=== PATIENT | male | born 1970 | race Caucasian/White ===

== ENCOUNTER 2016-09-12 17:48 | Emergency (ER) | payer OTHER ==
--- NOTE | 2016-09-12 18:40 | EDDOCDS ---
Nurse's Notes [facility] Name: Skyler Baker Age: 45 yrs Sex: Male : 1970 Arrival Date: 09/12/2016 Time: 17:48 Bed TR7 Private MD: Roya Dean [facility] Diagnosis: Strain of muscle, fascia and tendon of the posterior muscle group at thigh level, left thigh Presentation: 09/12 17:55 Presenting complaint: Patient states: slipped and fell. Presents to ER due to left leg ld5 pain. Adult Sepsis Screening: The patient does not have new or worsening altered mentation. Patient's respiratory rate is less than 22. Systolic blood pressure is greater than 100. Patient has a qSOFA score of 0- Negative Sepsis Screen. Suicide/Homicide risk assessment- the patient denies having any suicidal and/or homicidal ideations and does not present with any other emotional, behavioral or mental health complaints. 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 Transition of care: patient was not received from another setting of care. 17:55 Acuity: SHELLEY Level 4 ld5 17:55 Method Of Arrival: Walkin/Carried/Asstd ld5 Triage Assessment: 17:56 General: Appears in no apparent distress. Pain: Location: left leg Pain currently is 10 ld5 out of 10 on a pain scale. Aggravated by repositioning, weight bearing. HIV screening NA for this visit Offered previously. Neurological: Level of Consciousness is awake, alert. Musculoskeletal: Reports "it feels like it's swelling". Historical: - Allergies: no known allergies; - Home Meds: 1. Effexor XR 150 mg Oral cp24 1 cap once daily 2. Fish Oil Oral 1 tab daily 3. Vitamin D Oral 1000 unit daily - PMHx: Anxiety; - PSHx: right knee surgery; Neck fusion; - Social history: Smoking status: Patient states was never smoker of tobacco. No barriers to communication noted, The patient speaks fluent Jamaican, Speaks appropriately for age. - Family history: Not pertinent. - : The pt / caregiver states he / she is not on anticoagulants. Home medication list is obtained from the patient. - Exposure Risk Screening:: None identified. Screenin:37 Screening information is obtained from the patient. Fall risk: No risks identified. ld5 Assistance ADL's: requires no assistance with activities of daily living. Abuse/DV Screen: The patient / caregiver reports he/she is: not in a situation that causes fear, pain or injury. Nutritional screening: No deficits noted. Advance Directives: Currently, there is no health care proxy. home support is adequate. Assessment: 18:37 General: Appears in no apparent distress, Behavior is appropriate for age. Pain: ld5 Location: left leg. Neurological: Level of Consciousness is awake, alert. Respiratory: Airway is patent Respiratory effort is even, unlabored. Vital Signs: 17:50 BP 134 / 80; Pulse 78; Resp 16; Temp 97.7(T); Pulse Ox 100% on R/A; Weight 90.72 kg; sew Height 5 ft. 9 in. (175.26 cm); Pain 10/10; 17:50 Body Mass Index 29.53 (90.72 kg, 175.26 cm) [facility] [place] [place] Vitals: 17:50 Log In Time: September 12, 2016 at 17:45. [facility] [place] ED Course: 17:49 Patient visited by Lo Cruz. sew 17:49 Other - Complete Info On Cds is Private Physician. sew 17:49 [facility] is Private Physician. sew 17:49 Patient moved to Waiting sew 17:51 Patient visited by Lo Cruz. sew 17:51 Patient moved to Pre RCE sew 17:55 Triage Initiated ld5 17:57 Patient visited by Meredith Reyes RN. ld5 18:11 [facility] Flowers [facility]C [facility] ar2 18:11 Chiki Montalvo MD is Attending Physician. ar2 18:11 Patient visited by Titus Flowers PA-C. ar2 18:11 Patient moved to Triage 3 ld5 18:21 [facility] hospital is Referral Physician. ar2 18:35 Patient visited by Carissa Guerrero PCA. jb5 18:37 Patient moved to TR7 ld5 18:37 The patient / caregiver is instructed regarding the plan of care and ED course. ld5 18:37 No IV's were initiated during this patient's visit. No procedures done that require ld5 assistance. 18:39 German wrap to left leg. ld5 Order Results: There are currently no results for this order. Outcome: 18:22 Discharge ordered by Provider. ar2 18:37 Discharge Assessment: Patient awake, alert and oriented x 3. No cognitive and/or ld5 functional deficits noted. Patient verbalized understanding of disposition instructions. patient administered narcotics - no. The following High Risk Discharge criteria are identified: None. Discharged to home ambulatory. Condition: stable. Discharge instructions given to patient, Instructed on discharge instructions, follow up and referral plans. medication usage, Demonstrated understanding of instructions, medications, Pt was receptive of discharge instructions/ teaching. Prescriptions given X 1. No special radiology studies were completed. Property :Personal belongings accompany Pt. 18:39 Patient left the ED. ld5 Signatures: Carissa Guerrero, QUALITY INTERNSHIP QUALITY INTERNSHIP jb5 Titus Flowers PA-C PA-C ar2 Meredith ReyesRN RN ld5 Lo Cruz MTDD
--- NOTE | 2016-09-12 18:40 | EDDOCDS ---
Physician Documentation [facility] Name: Skyler Baker Age: 45 yrs Sex: Male : 1970 Arrival Date: 09/12/2016 Time: 17:48 Bed TR7 Private MD: Roya Dean [facility] Disposition: 09/12/16 18:22 Discharged to Home/Self Care. Impression: Strain of muscle, fascia and tendon of the posterior muscle group at thigh level, left thigh. - Condition is Stable. - Discharge Instructions: Elastic Bandage and RICE, Hamstring Strain. - Prescriptions for Naprosyn 500 mg Oral Tablet - take 1 tablet by ORAL route 2 times per day take with food; 30 tablet. - Medication Reconciliation, Local Pharmacy Hours form. - Follow up: Roya Dean [facility]; When: Tomorrow; Reason: Recheck today's complaints. - Problem is new. - Symptoms are unchanged. Historical: - Allergies: no known allergies; - Home Meds: 1. Effexor XR 150 mg Oral cp24 1 cap once daily 2. Fish Oil Oral 1 tab daily 3. Vitamin D Oral 1000 unit daily - PMHx: Anxiety; - PSHx: right knee surgery; Neck fusion; - Social history: Smoking status: Patient states was never smoker of tobacco. No barriers to communication noted, The patient speaks fluent Polish, Speaks appropriately for age. - Family history: Not pertinent. - : The pt / caregiver states he / she is not on anticoagulants. Home medication list is obtained from the patient. - Exposure Risk Screening:: None identified. Vital Signs: 09/12 17:50 BP 134 / 80; Pulse 78; Resp 16; Temp 97.7(T); Pulse Ox 100% on R/A; Weight 90.72 kg / sew 200 lbs; Height 5 ft. 9 in. (175.26 cm); Pain 10/10; 17:50 Body Mass Index 29.53 (90.72 kg, 175.26 cm) sew MDM: 18:21 German Wrap ordered. ar2 Signatures: Titus Flowers PA-C PAJoseC ar2 Meredith Reyes,RN RN ld5 MTDD
--- NOTE | 2016-09-16 09:41 | EDDOCDS ---
Physician Documentation [facility] Name: Skyler Baker Age: 45 yrs Sex: Male : 1970 Arrival Date: 09/12/2016 Time: 17:48 Bed TR7 Private MD: Roya Dean [facility] Disposition: 09/12/16 18:22 Discharged to Home/Self Care. Impression: Strain of muscle, fascia and tendon of the posterior muscle group at thigh level, left thigh. - Condition is Stable. - Discharge Instructions: Elastic Bandage and RICE, Hamstring Strain. - Prescriptions for Naprosyn 500 mg Oral Tablet - take 1 tablet by ORAL route 2 times per day take with food; 30 tablet. - Medication Reconciliation, Local Pharmacy Hours form. - Follow up: Roya Dean [facility]; When: Tomorrow; Reason: Recheck today's complaints. - Problem is new. - Symptoms are unchanged. Historical: - Allergies: no known allergies; - Home Meds: 1. Effexor XR 150 mg Oral cp24 1 cap once daily 2. Fish Oil Oral 1 tab daily 3. Vitamin D Oral 1000 unit daily - PMHx: Anxiety; - PSHx: right knee surgery; Neck fusion; - Social history: Smoking status: Patient states was never smoker of tobacco. No barriers to communication noted, The patient speaks fluent Serbian, Speaks appropriately for age. - Family history: Not pertinent. - : The pt / caregiver states he / she is not on anticoagulants. Home medication list is obtained from the patient. - Exposure Risk Screening:: None identified. Vital Signs: 09/12 17:50 BP 134 / 80; Pulse 78; Resp 16; Temp 97.7(T); Pulse Ox 100% on R/A; Weight 90.72 kg / sew 200 lbs; Height 5 ft. 9 in. (175.26 cm); Pain 10/10; 17:50 Body Mass Index 29.53 (90.72 kg, 175.26 cm) sew MDM: 18:21 German Wrap ordered. ar2 09/13 08:46 T-Sheet-- Draft Copy was scanned into [employer] and attached to record. [facility] Signatures: Titus Flowers PA-C PA-C ar2 Meredith Reyes RN RN Lo Ann [facility] The chart was reviewed and I authenticate all verbal orders and agree with the evaluation and treatment provided.Attachments: 08:46 T-Sheet-- Draft Copy se Chart Complete MTDD
--- NOTE | 2016-09-16 09:41 | EDDOCDS ---
Nurse's Notes [facility] Name: Skyler Baker Age: 45 yrs Sex: Male : 1970 Arrival Date: 09/12/2016 Time: 17:48 Bed TR7 Private MD: Roya Dean [facility] Diagnosis: Strain of muscle, fascia and tendon of the posterior muscle group at thigh level, left thigh Presentation: 09/12 17:55 Presenting complaint: Patient states: slipped and fell. Presents to ER due to left leg ld5 pain. Adult Sepsis Screening: The patient does not have new or worsening altered mentation. Patient's respiratory rate is less than 22. Systolic blood pressure is greater than 100. Patient has a qSOFA score of 0- Negative Sepsis Screen. Suicide/Homicide risk assessment- the patient denies having any suicidal and/or homicidal ideations and does not present with any other emotional, behavioral or mental health complaints. 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 Transition of care: patient was not received from another setting of care. 17:55 Acuity: SHELLEY Level 4 ld5 17:55 Method Of Arrival: Walkin/Carried/Asstd ld5 Triage Assessment: 17:56 General: Appears in no apparent distress. Pain: Location: left leg Pain currently is 10 ld5 out of 10 on a pain scale. Aggravated by repositioning, weight bearing. HIV screening NA for this visit Offered previously. Neurological: Level of Consciousness is awake, alert. Musculoskeletal: Reports "it feels like it's swelling". Historical: - Allergies: no known allergies; - Home Meds: 1. Effexor XR 150 mg Oral cp24 1 cap once daily 2. Fish Oil Oral 1 tab daily 3. Vitamin D Oral 1000 unit daily - PMHx: Anxiety; - PSHx: right knee surgery; Neck fusion; - Social history: Smoking status: Patient states was never smoker of tobacco. No barriers to communication noted, The patient speaks fluent Russian, Speaks appropriately for age. - Family history: Not pertinent. - : The pt / caregiver states he / she is not on anticoagulants. Home medication list is obtained from the patient. - Exposure Risk Screening:: None identified. Screenin:37 Screening information is obtained from the patient. Fall risk: No risks identified. ld5 Assistance ADL's: requires no assistance with activities of daily living. Abuse/DV Screen: The patient / caregiver reports he/she is: not in a situation that causes fear, pain or injury. Nutritional screening: No deficits noted. Advance Directives: Currently, there is no health care proxy. home support is adequate. Assessment: 18:37 General: Appears in no apparent distress, Behavior is appropriate for age. Pain: ld5 Location: left leg. Neurological: Level of Consciousness is awake, alert. Respiratory: Airway is patent Respiratory effort is even, unlabored. Vital Signs: 17:50 BP 134 / 80; Pulse 78; Resp 16; Temp 97.7(T); Pulse Ox 100% on R/A; Weight 90.72 kg; sew Height 5 ft. 9 in. (175.26 cm); Pain 10/10; 17:50 Body Mass Index 29.53 (90.72 kg, 175.26 cm) [facility] Vitals: 17:50 Log In Time: September 12, 2016 at 17:45. [facility] ED Course: 17:49 Patient visited by Lo Cruz. sew 17:49 Other - Complete Info On Cds is Private Physician. sew 17:49 [facility] is Private Physician. sew 17:49 Patient moved to Waiting sew 17:51 Patient visited by Lo Cruz. sew 17:51 Patient moved to Pre RCE sew 17:55 Triage Initiated ld5 17:57 Patient visited by Meredith Reyes RN. ld5 18:11 [facility]. ar2 18:11 Chiki Montalvo MD is Attending Physician. ar2 18:11 Patient visited by Titus Flowers PA-C. ar2 18:11 Patient moved to Triage 3 ld5 18:21 [facility] is Referral Physician. ar2 18:35 Patient visited by Carissa Guerrero PCA. jb5 18:37 Patient moved to TR7 ld5 18:37 The patient / caregiver is instructed regarding the plan of care and ED course. ld5 18:37 No IV's were initiated during this patient's visit. No procedures done that require ld5 assistance. 18:39 Patient visited by Meredith Reyes RN. ld5 18:39 German wrap to left leg. ld5 09/13 08:46 T-Sheet-- Draft Copy was scanned into [employer] and attached to record. [facility] Order Results: There are currently no results for this order. Outcome: 09/12 18:22 Discharge ordered by Provider. ar2 18:37 Discharge Assessment: Patient awake, alert and oriented x 3. No cognitive and/or ld5 functional deficits noted. Patient verbalized understanding of disposition instructions. patient administered narcotics - no. The following High Risk Discharge criteria are identified: None. Discharged to home ambulatory. Condition: stable. Discharge instructions given to patient, Instructed on discharge instructions, follow up and referral plans. medication usage, Demonstrated understanding of instructions, medications, Pt was receptive of discharge instructions/ teaching. Prescriptions given X 1. No special radiology studies were completed. Property :Personal belongings accompany Pt. 18:39 Patient left the ED. ld5 Signatures: Carissa Guerrero, DATABASE MANAGEMENT SPECIALIST DATABASE MANAGEMENT SPECIALIST jb5 Titus Flowers, DONNA THOMPSON ar2 Meredith Reyes,RN RN [email or web address] Lo Cruz Sarah seh Chart Complete FER
--- NOTE | 2016-09-16 09:41 | EDDOCDS ---
Physician Documentation [facility] Name: Skyler Baker Age: 45 yrs Sex: Male : 1970 Arrival Date: 09/12/2016 Time: 17:48 Bed TR7 Private MD: Roya Dean [facility] Disposition: 09/12/16 18:22 Discharged to Home/Self Care. Impression: Strain of muscle, fascia and tendon of the posterior muscle group at thigh level, left thigh. - Condition is Stable. - Discharge Instructions: Elastic Bandage and RICE, Hamstring Strain. - Prescriptions for Naprosyn 500 mg Oral Tablet - take 1 tablet by ORAL route 2 times per day take with food; 30 tablet. - Medication Reconciliation, Local Pharmacy Hours form. - Follow up: Roya Dean [facility]; When: Tomorrow; Reason: Recheck today's complaints. - Problem is new. - Symptoms are unchanged. Historical: - Allergies: no known allergies; - Home Meds: 1. Effexor XR 150 mg Oral cp24 1 cap once daily 2. Fish Oil Oral 1 tab daily 3. Vitamin D Oral 1000 unit daily - PMHx: Anxiety; - PSHx: right knee surgery; Neck fusion; - Social history: Smoking status: Patient states was never smoker of tobacco. No barriers to communication noted, The patient speaks fluent Yi, Speaks appropriately for age. - Family history: Not pertinent. - : The pt / caregiver states he / she is not on anticoagulants. Home medication list is obtained from the patient. - Exposure Risk Screening:: None identified. Vital Signs: 09/12 17:50 BP 134 / 80; Pulse 78; Resp 16; Temp 97.7(T); Pulse Ox 100% on R/A; Weight 90.72 kg / sew 200 lbs; Height 5 ft. 9 in. (175.26 cm); Pain 10/10; 17:50 Body Mass Index 29.53 (90.72 kg, 175.26 cm) sew MDM: 18:21 German Wrap ordered. ar2 09/13 08:46 T-Sheet-- Draft Copy was scanned into [employer] and attached to record. [facility] Signatures: Titus Flowers PA-C PA-C ar2 Meredith Reyes RN RN Lo Ann [facility] The chart was reviewed and I authenticate all verbal orders and agree with the evaluation and treatment provided.Attachments: 08:46 T-Sheet-- Draft Copy se Chart Complete MTDD
== END 2016-09-12 18:39 | disposition home or self-care (01) ==
LOC: M ED 17:48
DX: S86.812A Strain of other muscle(s) and tendon(s) at lower leg level, left leg, initial encounter (principal); W00.9XXA Unspecified fall due to ice and snow, initial encounter; Y92.410 Unspecified street and highway as the place of occurrence of the external cause; Y93.9 Activity, unspecified; Y99.9 Unspecified external cause status; F41.9 Anxiety disorder, unspecified; Z79.899 Other long term (current) drug therapy

== ENCOUNTER 2017-03-30 10:33 | Emergency (ER) | payer OTHER ==
[~2017-03-30] VITALS: Ht 175.3 cm; Wt 59.1 kg
[2017-03-30 10:34] VITALS: BP 157/97
[2017-03-30] MEDS ORDERED: EFFE150C PO (10:44)
[2017-03-30] MEDS ORDERED: VICO10TA11 PO (10:44)
[2017-03-30] MEDS ORDERED: METF500T13 PO (10:44)
[2017-03-30] MEDS ORDERED: PRED20TA PO (11:15)
[2017-03-30] MEDS ORDERED: VALT1TAB PO (11:15)
[2017-04-01 00:09] LABS: Lyme Disease IgG/IgM Antibodie <0.91 ISR (0.00-0.90); Lyme Disease IgM Ab Quantitati <0.80 index (0.00-0.79)
== END 2017-03-30 11:25 | disposition home or self-care (01) ==
LOC: M ED 10:33
DX: G51.0 Bell's palsy (principal); E11.9 Type 2 diabetes mellitus without complications; F32.9 Major depressive disorder, single episode, unspecified; M54.9 Dorsalgia, unspecified; M54.2 Cervicalgia; F17.200 Nicotine dependence, unspecified, uncomplicated; Z79.84 Long term (current) use of oral hypoglycemic drugs; Z79.899 Other long term (current) drug therapy

== ENCOUNTER 2017-12-22 14:55 | Emergency (ER) | payer OTHER ==
[2017-12-22] MEDS: METHOCARBAMOL 750 MG TAB PO (16:20)
[2017-12-22] MEDS: KETOROLAC 60 MG/2 ML VIAL (J1885) IM (16:20)
== END 2017-12-22 16:43 | disposition home or self-care (01) ==
LOC: M ED 14:55
DX: M54.41 Lumbago with sciatica, right side (principal); G89.29 Other chronic pain; E11.9 Type 2 diabetes mellitus without complications; F41.9 Anxiety disorder, unspecified; Z79.899 Other long term (current) drug therapy; Z79.84 Long term (current) use of oral hypoglycemic drugs
CPT/HCPCS: J1885

== ENCOUNTER 2018-04-26 14:47 | Emergency (ER) | payer OTHER ==
[2018-04-26 16:50] LABS: BASO % 0.2 % (0.0-1.0); EOS # 0.2 10^3/uL (0.0-0.50); EOS % 1.7 % (0.0-3.0); HEMATOCRIT 41.3 % (42.0-52.0); HEMOGLOBIN 14.8 g/dl (13.5-17.5); IMMATURE GRANULOCYTE % 0.3 % (0-3.0); LYMPH # 3.1 10^3/uL (1.5-4.5); LYMPH % 30.7 % (24.0-44.0); MEAN CORPUSCULAR HEMOGLOBIN 31.2 pg (27.0-33.0); MEAN CORPUSCULAR HGB CONC 35.8 g/dl (32.0-36.5); MEAN CORPUSCULAR VOLUME 87.1 fl (80.0-96.0); MONO # 0.7 10^3/uL (0.0-0.8); NEUTROPHILS % 60.1 % (36.0-66.0); PLATELET COUNT, AUTOMATED 193 10^3/uL (150-450); RED BLOOD COUNT 4.74 10^6/uL (4.30-6.10)
[2018-04-26 17:11] LABS: ANION GAP 7 MEQ/L (8-16); BLOOD UREA NITROGEN 11 MG/DL (7-18); CALCIUM LEVEL 8.3 MG/DL (8.5-10.1); CARBON DIOXIDE LEVEL 28 MEQ/L (21-32); CHLORIDE LEVEL 105 MEQ/L (98-107); CREATININE FOR GFR 0.99 MG/DL (0.70-1.30); GLOMERULAR FILTRATION RATE > 60.0 (>60); GLUCOSE, FASTING 88 MG/DL (70-100); POTASSIUM SERUM 3.9 MEQ/L (3.5-5.1); SODIUM LEVEL 140 MEQ/L (136-145); URIC ACID 5.4 MG/DL (3.5-7.2)
== END 2018-04-26 17:51 | disposition home or self-care (01) ==
LOC: M ED 14:47
DX: M10.9 Gout, unspecified (principal); E11.9 Type 2 diabetes mellitus without complications; F41.9 Anxiety disorder, unspecified; F17.210 Nicotine dependence, cigarettes, uncomplicated; Z98.890 Other specified postprocedural states; Z79.84 Long term (current) use of oral hypoglycemic drugs; Z79.899 Other long term (current) drug therapy
CPT/HCPCS: 73660

== ENCOUNTER → 2018-12-29 | Outpatient (CLI) | payer OTHER ==
[~2018-12-29] MED LIST: COLC1TAB13 PO; DEXTROAMP-AMPHET; EFFE150C2 PO; LOSA50TA88 PO; MEDR4PAK PO; METF500T13 PO; NAPR-837 PO; PRED20TA PO; PREG100CA; ROBA500T PO; TIZA4CAP; VALT1TAB PO; VICO10TA11 PO
--- NOTE | 2018-12-29 09:29 | REP ---
CT lumbar spine without contrast History: Radiculopathy Comparison: MR 06/16/2016 A diffuse disc bulge is present at the L1-2 level. There is minimal compression of the thecal sac. The L1 nerves exit the neural foramina without compression. A diffuse disc bulge is present at the the L2-3 level. There is an increase in the amount of epidural fat. There is minimal compression of the thecal sac. There is hypertrophy of the posterior articulating facets. The L2 nerves exit the neural foramina without compression. A diffuse disc bulge is present in the L3-4 level. There is an increase in the amount of epidural fat. There is minimal compression of the thecal sac. There is hypertrophy of the posterior articulating facets. A small left intraforaminal disc protrusion is present. There is compression of the left L3 nerve in the neural foramen. The right L3 nerve exits the neural foramen without compression. A diffuse disc bulge at is present at the L4-5 level. The previously noted small disc protrusion is not seen. There is an increase in the amount of epidural fat. There is minimal compression of the thecal sac. The L4 nerves exit the neural foramina without compression. A diffuse disc bulge is present at the L5-L1 level. This abuts the thecal sac. There is hypertrophy of the posterior to the facets. The L5 nerves exit the neural foramina without compression. The L4-5 through L5-L1 intervertebral discs are decreased in height consistent with disc degeneration. There is no subluxation. Impression: 1. Diffuse disc bulge at the L1-2 level with minimal thecal sac compression. 2. Diffuse disc bulge and epidural lipomatosis at the L2-L3 and L3-4 levels with minimal thecal sac compression. A small left intraforaminal disc protrusion is present at the L3-4 level. There is compression of the left L3 nerve in the neural foramen. This is a new finding. 3. Diffuse disc bulge and epidural lipomatosis at the L4-5 level with minimal thecal sac compression. The previously noted small disc protrusion is not seen. 3. Diffuse disc bulge at the L5-L1 level. This abuts the thecal sac. Electronically Signed by Steve Cheng MD 12/29/2018 09:20 A
== END ==
LOC: M RAD 08:31
PROVIDERS: ATTEND Pain Medicine Interventional Pain Medicine
DX: M51.26 Other intervertebral disc displacement, lumbar region (principal); M51.36 Other intervertebral disc degeneration, lumbar region; M51.27 Other intervertebral disc displacement, lumbosacral region; M51.37 Other intervertebral disc degeneration, lumbosacral region

== ENCOUNTER → 2019-03-01 | Outpatient (CLI) | payer OTHER ==
[~2019-03-01] MED LIST changes: +ISOVUE-M 300 61% 15ML VIAL (Q9967) As Ordered ONE; +LIDOCAINE 1% MDV 20ML VIAL As Ordered ONE
--- NOTE | 2019-03-01 11:03 | REP ---
CT myelography lumbar spine with intrathecal contrast: History: Low back pain. Technique: The injection procedure is performed and dictated separately. Helical scanning of the thoracic spine is acquired and 4 mm axial images are reformatted. Coronal and sagittal MPR images are generated and reviewed. CT myelographic findings: Lumbar vertebral body heights are preserved. Alignment is normal. There is no evidence of spondylolysis or spondylolisthesis. There is good opacification of the lumbar thecal sac and the lower thoracic thecal sac. There is a developmentally small canal. At L2-3 AP dimension of the thecal sac in the midline is 9.5 mm. No other abnormality is noted at L1-2 or L2-3. At L3-4, there is mild diffuse disc bulging. There is mild developmental thecal sac narrowing, mid AP dimension of the thecal sac is 8.6 mm at L3-4. Nerve roots are symmetrically opacified. There is mild facet hypertrophy. At L4-5, there is degenerative narrowing of the disc. There is a subtle indentation on the ventral margin of the thecal sac to the left of midline at L4-5 consistent with a small focal disc protrusion. This appears to indent the origin of the left fifth root sleeve. There is diffuse bulging of the remainder of the 4-5 disc. Midline AP dimension of the thecal sac is 8.2 mm. Mild developmental central canal stenosis. Mild facet hypertrophy is present bilaterally. At L5-S1, there is disc narrowing. There is a central focal disc protrusion which extends caudally indenting the ventral margin of the thecal sac. The root sleeves appear symmetrically opacified. Impression: Developmentally small central spinal canal. Disc bulging at L3-4. Subtle left paracentral disc protrusion suspected at L4-5. Central disc protrusion at L5-S1. Electronically Signed by Buck Mahmood MD 03/01/2019 03:48 P
--- NOTE | 2019-03-01 11:13 | REP ---
CT MYELOGRAPHY THORACIC SPINE WITH INTRATHECAL CONTRAST: HISTORY: Back pain. TECHNIQUE: The injection procedure is performed and dictated separately. Helical scanning is acquired. 4 mm axial images are reformatted. Coronal and sagittal MPR images are generated and reviewed. CT MYELOGRAPHIC FINDINGS: Ventral discectomy and fusion plating has been performed in the lower cervical spine with a ventral fusion plate seen extending to the inferior margin of C6. Thoracic vertebral body heights are preserved. Alignment is normal. The thoracic cord is normal in course and caliber. There are degenerative disc changes at several levels. Conus medullaris is unremarkable. There is mild diffuse bulging of the T10-11 disc margin. At T9-10, there is mild facet hypertrophy bilaterally. On the left, this facet hypertrophy indents the dorsal lateral aspect of the thecal sac but does not compress the cord. No disc protrusion is seen. At the T6-7, there is a right central focal disc protrusion which extends caudally along the posterior margin of the T7 vertebral body. This indents the thecal sac but does not compress the cord. There is mild diffuse bulging of the T2-3 and T3-4 disc with early posterior osteophytic ridging. No disc protrusion is seen. The exam is otherwise unremarkable. IMPRESSION: Degenerative disc disease at several levels. Disc protrusion with caudal extension at T6-7. Facet hypertrophy at T9-10 diffuse disc bulging at T10-11. Electronically Signed by Buck Mahmood MD 03/01/2019 03:48 P
--- NOTE | 2019-03-01 15:52 | REP ---
Examination Requested: Thoracic and lumbar myelogram Reason For Exam/Comment: Low back pain The procedure was performed HARRY Currie, under the direct supervision of Dr. Mahmood. The images were reviewed with Dr. Mahmood. Procedure: The patient was interviewed and informed consent was obtained. The patient was placed prone on the fluoroscopic table. Patient safety time-out was articulated and agreed to. The L 2-3 interspinous interspace was localized using fluoroscopic guidance. The skin was prepped and draped in a sterile fashion. 5 ml of 1% lidocaine was used as a local anesthetic. Using fluoroscopic guidance a 22-gauge spinal needle was inserted and advanced into the thecal sac. Clear, freely flowing CSF was retrieved on the first needle pass. 11 ml of Isovue - M 300 was injected into the thecal sac. The needle was removed and fluoroscopic myelographic spot radiographs were acquired in the thoracic and lumbar spine. Following this, the patient was taken to CT scan for post procedural imaging. Thoracic and lumbar myelographic findings: There is a good filling of the lumbar and thoracic thecal sac. The left fourth lumbar root sleeve is less well filled out than its right-sided counterpart. Similarly, there is a suggestion amputation of the left S1 root sleeve as well. The spinal canal is otherwise unremarkable. No abnormalities noted on the thoracic myelographic images. Impression: 1. Successful L1-2 lumbar puncture for lumbar and thoracic myelography. 2. Suggestion of compression of the left S1 and the left L4 root sleeves, otherwise negative. CT imaging to follow. 1.0 minutes of fluoroscopy time was utilized for this procedure. Some fluoroscopic images are performed with last image hold technology. These images require no additional radiation. Reviewed by HARRY Sequeira 03/01/2019 12:58 P Electronically Signed by Buck Mahmood MD 03/01/2019 03:44 P
== END ==
LOC: M RADPRO 08:12
PROVIDERS: ATTEND Orthopaedic Surgery Orthopaedic Surgery of the Spine
DX: M51.06 Intervertebral disc disorders with myelopathy, lumbar region (principal); M51.36 Other intervertebral disc degeneration, lumbar region; M53.82 Other specified dorsopathies, cervical region; M54.5 Low back pain
CPT/HCPCS: 62305; 72129; 72132; Q9967

== ENCOUNTER → 2019-06-28 | Outpatient (CLI) | payer OTHER ==
[~2019-06-28] MED LIST changes: -ISOVUE-M 300 61% 15ML VIAL (Q9967) As Ordered ONE; -LIDOCAINE 1% MDV 20ML VIAL As Ordered ONE
--- NOTE | 2019-06-29 03:17 | REP ---
Acute on chronic right knee pain. Technique: Axial noncontrast images through the right knee with coronal and sagittal re-formations. Findings: Moderate and possibly partially post traumatic/surgical osteoarthritic degenerative changes are appreciated. Findings include subchondral heterogeneity with subtle cystic changes involving the distal femur along with cortical irregularities and spurring/osteophyte formation within the intercondylar notch as well as along the femoral condyles, tibial spines, and lateral margins of the tibial plateau. 20 mm and 4 mm calcified loose bodies are identified in the posterior patellofemoral joint space There is evidence for prior ACL repair. There is mild tibiofemoral joint space narrowing. The patella demonstrates marginal spurring/early osteophyte formation as well as associated cortical irregularity and osteophyte formation along the anterior margin of the femur at the patellofemoral joint space with mild patellofemoral joint space narrowing and periarticular sclerosis. Sclerosis and fraying along the anterior margin of the patella is also identified suggesting associated patellar tendinopathy. No acute effusion. No acute fracture. The surrounding musculature appears relatively normal. Impression: Moderate osteoarthritic degenerative changes. Electronically Signed by Killian Pendleton MD 06/29/2019 03:08 A
== END ==
LOC: M RAD 13:58
PROVIDERS: ATTEND Nurse Practitioner Family
DX: M25.761 Osteophyte, right knee (principal); M25.561 Pain in right knee

== ENCOUNTER 2021-07-28 11:34 | Emergency (ER) | payer OTHER ==
[~2021-07-28] VITALS: Ht 175.3 cm; Wt 84.3 kg
[~2021-07-28 11:34] MED LIST changes: +COLC0.6T47 PO; -COLC1TAB13 PO
--- OUTSIDE RECORDS SUMMARY | 2021-07-28 11:41 | CCD ---
Author Author [facility] Organization [facility] Address Unknown Phone Unavailable Care Team Providers Care Upfitter Name Role Phone Jaziel ZAPIEN MD Unavailable Unavailable Jaziel ZAPIEN MD Unavailable Unavailable Jaziel ZAPIEN MD Unavailable Unavailable Jaziel ZAPIEN MD Unavailable Unavailable Jaziel ZAPIEN MD Unavailable Unavailable Jaziel ZAPIEN MD Unavailable Unavailable Jaziel ZAPIEN MD Unavailable Unavailable Jaziel ZAPIEN MD Unavailable Unavailable Jaziel ZAPIEN MD Unavailable Unavailable Jaziel ZAPIEN MD Unavailable Unavailable Jaziel ZAPIEN MD Unavailable Unavailable Jaziel ZAPIEN MD Unavailable Unavailable Jaziel ZAPIEN MD Unavailable Unavailable Jaziel ZAPIEN MD Unavailable Unavailable Jaziel ZAPIEN MD Unavailable Unavailable Jaziel ZAPIEN MD Unavailable Unavailable Jaziel ZAPIEN MD Unavailable Unavailable Jaziel ZAPIEN MD Unavailable Unavailable Jaziel ZAPIEN MD Unavailable Unavailable Jaziel ZAPIEN MD Unavailable Unavailable Jaziel ZAPIEN MD Unavailable Unavailable Jaziel ZAPIEN MD Unavailable Unavailable Jaziel ZAPIEN MD Unavailable Unavailable Jaziel ZAPIEN MD Unavailable Unavailable Jaziel ZAPIEN MD Unavailable Unavailable Jaziel ZAPIEN MD Unavailable Unavailable Jaziel ZAPIEN MD Unavailable Unavailable Jaziel ZAPIEN MD Unavailable Unavailable Jaziel ZAPIEN MD Unavailable Unavailable Jaziel ZAPIEN MD Unavailable Unavailable Jaziel ZAPIEN MD Unavailable Unavailable Jaziel ZAPIEN MD Unavailable Unavailable CURRY, Jaziel KENNEDY MD Unavailable Unavailable CURRY, Jaziel KENNEDY MD Unavailable Unavailable CURRY, Jaziel KENNEDY MD Unavailable Unavailable CURRY, Jaziel KENNEDY MD Unavailable Unavailable CURRY, Jaziel KENNEDY MD Unavailable Unavailable CURRY, Jaziel KENNEDY MD Unavailable Unavailable CURRY, Jaziel KENNEDY MD Unavailable Unavailable CURRY, Jaziel KENNEDY MD Unavailable Unavailable Kenniff, P Ki RPA-C Unavailable Unavailable Kenniff, P Ki RPA-C Unavailable Unavailable Kenniff, P Ki RPA-C Unavailable Unavailable Kenniff, P Ki RPA-C Unavailable Unavailable Kenniff, P Ki RPA-C Unavailable Unavailable Kenniff, P Ki RPA-C Unavailable Unavailable Kenniff, P Ki RPA-C Unavailable Unavailable Kenniff, P Ki RPA-C Unavailable Unavailable Kenniff, P Ki RPA-C Unavailable Unavailable Kenniff, P Ki RPA-C Unavailable Unavailable Kenniff, P Ki RPA-C Unavailable Unavailable Kenniff, P Ki RPA-C Unavailable Unavailable Kenniff, P Ki RPA-C Unavailable Unavailable Kenniff, P Ki RPA-C Unavailable Unavailable Kenniff, P Ki RPA-C Unavailable Unavailable Kenniff, P Ki RPA-C Unavailable Unavailable Kenniff, P Ki RPA-C Unavailable Unavailable Kenniff, P Ki RPA-C Unavailable Unavailable Kenniff, P Ki RPA-C Unavailable Unavailable Kenniff, P Ki RPA-C Unavailable Unavailable Kenniff, P Ki RPA-C Unavailable Unavailable Kenniff, P Ki RPA-C Unavailable Unavailable Kenniff, P Ki RPA-C Unavailable Unavailable Kenniff, P Ki RPA-C Unavailable Unavailable Colbert Ibarra, Qiana Echols MD, FACS Unavailable Unavailable Colbert Ibarra, Qiana Echols MD, FACS Unavailable Unavailable Colbert Ibarra, Qiana Echols MD, FACS Unavailable Unavailable Colbert Ibarra, Qiana Echols MD, FACS Unavailable Unavailable Colbert Ibarra, Qiana Echols MD, FACS Unavailable Unavailable Colbert Ibarra, Qiana Echols MD, FACS Unavailable Unavailable Colbert Ibarra, Qiana Echols MD, FACS Unavailable Unavailable Colbert Ibarra, Qiana Echols MD, FACS Unavailable Unavailable Colbert Ibarra, Qiana Echols MD, FACS Unavailable Unavailable Colbert Ibarra, Qiana Echols MD, FACS Unavailable Unavailable Colbert Ibarra, Qiana Echols MD, FACS Unavailable Unavailable Colbert Ibarra, Qiana Echols MD, FACS Unavailable Unavailable Colbert Ibarra, Qiana Echols MD, FACS Unavailable Unavailable Colbert Ibarra, Qiana Echols MD, FACS Unavailable Unavailable Colbert Ibarra, Qiana Echols MD, FACS Unavailable Unavailable Colbert Ibarra, Qiana Echols MD, FACS Unavailable Unavailable Colbert Ibarra, Qiana Echols MD, FACS Unavailable Unavailable Colbert Ibarra, Qiana Echols MD, FACS Unavailable Unavailable Colbert Ibarra, Qiana Echols MD, FACS Unavailable Unavailable Colbert Ibarra, Qiana Echols MD, FACS Unavailable Unavailable Colbert Ibarra, Qiana Echols MD, FACS Unavailable Unavailable Colbert Ibarra, Qiana Echols MD, FACS Unavailable Unavailable Colbert Ibarra, Qiana Echols MD, FACS Unavailable Unavailable Colbert Ibarra, Qiana Echols MD, FACS Unavailable Unavailable Colbert Ibarra, Qiana Echols MD, FACS Unavailable Unavailable Colbert Ibarra, Qiana Echols MD, FACS Unavailable Unavailable Colebrt Ibarra, Qiana Echols MD, FACS Unavailable Unavailable Colbert Ibarra, Qiana Echols MD, FACS Unavailable Unavailable Colbert Ibarra, Qiana Echols MD, FACS Unavailable Unavailable Colbert Ibarra, Qiana Echols MD, FACS Unavailable Unavailable Colbert Ibarra, Qiana Echols MD, FACS Unavailable Unavailable Colbert Ibarra, Qiana Echols MD, FACS Unavailable Unavailable Colbert Ibarra, Qiana Echols MD, FACS Unavailable Unavailable Colbert Ibarra, Qiana Echols MD, FACS Unavailable Unavailable Colbert Ibarra, Qiana Echols MD, FACS Unavailable Unavailable Colbert Ibarra, Qiana Echols MD, FACS Unavailable Unavailable Colbert Ibarra, Qiana Echols MD, FACS Unavailable Unavailable Colbert Ibarra, Qiana Echols MD, FACS Unavailable Unavailable Colbert Ibarra, Qiana Echols MD, FACS Unavailable Unavailable Re-disclosure Warning The records that you are about to access may contain information from federally-assisted alcohol or drug abuse programs. If such information is present, then the following federally mandated warning applies: This information has been disclosed to you from records protected by federal confidentiality rules (42 CFR part 2). The federal rules prohibit you from making any further disclosure of this information unless further disclosure is expressly permitted by the written consent of the person to whom it pertains or as otherwise permitted by 42 CFR part 2. A general authorization for the release of medical or other information is NOT sufficient for this purpose. The Federal rules restrict any use of the information to criminally investigate or prosecute any alcohol or drug abuse patient.The records that you are about to access may contain highly sensitive health information, the redisclosure of which is protected by Article 27-F of the [facility] Public Health law. If you continue you may have access to information: Regarding HIV / AIDS; Provided by facilities licensed or operated by the [facility] Office of Mental Health; or Provided by the [facility] Office for People With Developmental Disabilities. If such information is present, then the following [facility] mandated warning applies: This information has been disclosed to you from confidential records which are protected by state law. State law prohibits you from making any further disclosure of this information without the specific written consent of the person to whom it pertains, or as otherwise permitted by law. Any unauthorized further disclosure in violation of state law may result in a fine or prison sentence or both. A general authorization for the release of medical or other information is NOT sufficient authorization for further disc losure. Allergies and Adverse Reactions Type Description Substance Reaction Status Data Source(s ) Allergy to substance No Known Allergies No known allergies (situation ) [facility] (Onesimo Ibarra MD [facility]) Encounters Encounter Providers Location Date Indications Data Source(s ) Outpatient Attender: BRENT ZAPIEN MDConsultant: Ki Ballard iff RPA-C 05/14/2021 10:58:00 AM EDT - 05/14/2021 11:58:00 AM EDT [facility] <td ID="encounterTypeDescriptionID0">1 Y ear Follow-Up</td><td>Onesimo Ibarra MD, FACS</td><td>Onesimo Carreon MD [facility]</td><td>06/01/2020</td><td>1:30PM</td><td>05/13/2019 11:59PM</td><td> <content ID="encounterDiagnosisID0-0">Diabetes Mellitus Type 2 - Uncomplicated, Controlled</content>, <content ID="encounterDiagnosisID0-1">Blepharitis Squamous</content></td>Outpatient Attender: Onesimo Ibarra MD, FACS Onesimo Carreon MD [facility] 06/01/2020 01:30:00 PM EDT - 05/13/2019 11:59:00 PM ED T Blepharitis SquamousDiabetes Mellitus Type 2 - Uncomplicated, Controlled [place] (Onesimo Ibarra MD [facility]) Blepharitis Squamous Diabetes Mellitus Type 2 - Uncomplicated , Controlled Immunizations Vaccine Date Status Description Data Source(s) COVID-19 VACCINE Pfizer 11/16/2020 12:00:00 AM EST completed NYSIIS Vaccine Series Complete: NOThis Data was Submitted to [facility] Via [employer]. Medications Medication Brand Name Start Date Product Form Dose Route Admi nistrative Instructions Pharmacy Instructions Status Indications Reaction Description Data Source(s) 1 mg 07/06/2020 12:00:00 AM EDT tablet 120 TAKE ONE TABLET BY MOUTH FOUR TIMES A DAY MAXIMUM DAILY DOSE = FOUR TABLETS TAKE ONE TABLET BY MOUTH FOUR TIMES A DAY MAXIMUM DAILY DOSE = FOUR TABLETS SOLD: 07/06/2020 [facility] 15 mg 07/05/2020 12:00:00 AM EDT tablet 60 TAKE ONE TABLET BY MOUTH EVERY MORNING AND 1 AT NOON MAXIMUM DAILY DOSE = 2 TAKE ONE TABLET BY MOUTH EVERY MORNING AND 1 AT NOON MAXIMUM DAILY DOSE = 2 SOLD: 07/06/2020 [facility] 1 mg 06/08/2020 12:00:00 AM EDT tablet 120 TAKE ONE TABLET BY MOUTH FOUR TIMES A DAY MAXIMUM DAILY DOSE = 4 TAKE ONE TABLET BY MOUTH FOUR TIMES A DA Y MAXIMUM DAILY DOSE = 4 SOLD: 06/08/2020 [facility] 15 mg 05/31/2020 12:00:00 AM EDT tablet 30 TAKE ONE TABLET BY MOUTH EVERY MORNING MAXIMUM DAILY DOSE = 1 TAKE ONE TABLET BY MOUTH EVERY MORNING M AXIMUM DAILY DOSE = 1 SOLD: 06/02/2020 [facility] Insurance Providers Payer name Policy type / Coverage type Policy ID Covered democrat ID Covered democrat's relationship to llanos Policy Llanos Plan Information U [id number] Self [id number] ACTIVE DUTY [id number] SP [id number] [place] [id number] SP [id number] ACTIVE DUTY [id number] SP [id number] [facility] HUMANA [id number] SP [id number] Jordana [id number] [place] F [id number] SELF [id number] [place] Claims F [id number] SELF [id number] [facility] F [id number] SELF [id number] [place] F pending SELF pending [facility] HUMANA [id number] SP [id number] N REGIONAL CLAIMS MICHAEL-O/P [id number] 18 [id number] xxxxxxxxxxx [id number] Jordana [id number] [address] [facility] [employer] [facility] [place] [id number] 18 [id number] [place] [place] [id number] 18 [id number] [place] [employer] [place] [id number] 18 [id number] [facility]/ AD O [id number] S [id number] Problems, Conditions, and Diagnoses Code Display Name Description Problem Type Effective Dates Data Source(s) R519 Headache, unspecified Headache, unspecified Diagnosis 05/14/2021 10:58:00 AM EDT [facility] 39207199 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 Problem 06/01/2020 02:15:00 PM EDT [facility] (Onesimo Ibarra MD [facility]) 379.21 Vitreous Disorders Degeneration Vitreous Disorders Deg eneration Problem 06/01/2020 02:15:00 PM EDT [facility] (Onesimo Ibarra MD [facility]) Surgeries/Procedures Procedure Description Date Indications Data Source(s) Surgical / procedural history Knee sx 2 015, Neck sx 2009, Spinal stem stimulator x2 2016 2018 Surgical / procedural history Knee sx 2 015, Neck sx 2009, Spinal stem stimulator x2 2017 201806/01/2020 12:00:00 AM EDT [facility] (Onesimo Ibarra MD [facility]) Intermediate Eye Exam Established Patient Intermediate Eye Exam Established Patient 06/01/2020 12:00:00 AM EDT [facility] (Carter Ibarra MD [facility]) Results ID Date Data Source [id number] 05/16/2021 08:27:00 PM EDT [facility] [address] [place] [address] PHONE: [phone] FAX: [phone] Name .................. : MAME LIVIA Marietta Acct Number.................. : [id number] ROOM. ................. : Number ................... : [id number] Stay type ............. : O/P Discharge Date......... ... : 05/14/21 Admit Date .... ..... : 05/14/21 Admit Phys .................... : CURRY LIEBERMAN Date of ....... : 1970 Family Phys ................... : BINH STILES Phone .................. : [phone] Age ................................ : 50 Film# .................. .:[id number] Sex ................................. : M Unsigned transcriptions are preliminary reports and do not represent a medical or legal document CT HEAD W/O CONTRAST [id number] COMPLETE:05/14/21 11:03 Reason for Exam: FREQUENT HEADACHES X [address] BRAIN WITHOUT IV CONTRAST INDICATION: Worsening headaches COMPARISON: 06/08/2017 CONTRAST: None One or more of the following dose reduction techniques were utilized in effectively lowering the radiation dose for this examination: Automated Exposure Control, Adjustment of the mA and/or kV according to patient size, or Iterative Reconstruction. FINDINGS: Ventricles and sulci show mild asymmetrically larger right lateral ventricle and cavum septum lucidum normal variant. Appearance unchanged from prior. Browning white differentiation is intact. No extra-axial collection or intracranial hemorrhage. No indication of acute or prior ischemic CVA. No mass or mass effect. Cerebellar tonsils are normal in position. Calvarium and skull base are within normal limits. To the extent included sinuses are clear. IMPRESSION: No acute intracranial abnormality. Slight ventricular asymmetry likely normal variation for this patient unchanged from prior. No specific etiology for headaches is identified. If further imaging is warranted clinically consider MRI. Electronically Reviewed and Signed By Celso Helms MD , 05/16/21 20:27, [place] Transcribe Initials: ARMEN , Transcribe Date: 05/14/21 14:06, Dictation Date: Page 1 of [address] [place] [address] PHONE: [phone] FAX: [phone] Name .................. : MAME Mcmanus Acct Number.................. : [id number] ROOM. ................. : Number ................... : [id number] Stay type ............. : O/P Discharge Date......... ... : 05/14/21 Admit Date ......... : 05/14/21 Admit Phys .................... : CURRY LIEBERMAN Date of ....... : 1970 Family Phys ................... : BINH LINSEY Phone .................. : [phone] Age ................................ : 50 Film# .................. .:[id number] Sex ................................. : M Unsigned transcriptions are preliminary reports and do not represent a medical or legal document CT HEAD W/O CONTRAST [id number] COMPLETE:05/14/21 11:03 Reason for Exam: FREQUENT HEADACHES X 3 WEEKS Copy for: CURRY Sheriff via fax Copy for: 710 MED REC Page 2 of 2 Name Value Range Interpretation Code Description Data Ariana rce(s) Supporting Document(s) Procedure Social History Code Duration Value Status Description Data Source(s ) Smoking 06/01/2020 02:18:32 PM EDT Smokes tobacco daily (findi ng) completed Smokes tobacco daily (finding) [facility] (Onesimo Ibarra MD [facility])
[2021-07-28] MEDS ORDERED: PRAZ1CAP (11:46)
[2021-07-28] MEDS ORDERED: AMPH1TAB2 (11:46)
[2021-07-28] MEDS ORDERED: AMIT25TA17 (11:46)
[2021-07-28] MEDS ORDERED: ALPR1TAB3 (11:46)
--- OUTSIDE RECORDS SUMMARY | 2021-07-28 13:26 | CCD ---
Author Author [facility] Organization [facility] Address Unknown Phone Unavailable Care Team Providers Care Residency Coordinator Name Role Phone Jaziel ZAPIEN MD Unavailable Unavailable Jaizel ZAPIEN MD Unavailable Unavailable Jaziel ZAPIEN MD [...] Echols MD, FACS Unavailable Unavailable Colbert Ibarra, iQana Echols MD, FACS Unavailable Unavailable Colbert Ibarra, [...] Qiana Echols MD, FACS Unavailable Unavailable Colbert Biarra, Qiana Echols MD, FACS Unavailable Unavailable Colbert [...] Ibarra, Qiana Echols MD, FACS Unavailable Unavailable Clobert Ibarra, Qiana Echols MD, FACS Unavailable Unavailable [...] is protected by Article 27-F of the [facility] Public Health law. If you continue you may have access to information: Regarding HIV / AIDS; Provided by facilities licensed or operated by the [facility] Office of Mental Health; or Provided by the [facility] Office for People With Developmental Disabilities. If such information is present, then the following [facility] mandated warning applies: This information has [...] law may result in a fine or skilled nursing sentence or both. A general authorization for the release of medical or other information is NOT sufficient authorization for further disc losure. Allergies and Adverse Reactions Type Description Substance Reaction Status Data Source(s ) Allergy to substance No Known Allergies No known allergies (situation ) [facility] (Onesimo Ibarra MD [facility]) Encounters Encounter Providers Location Date Indications Data Source(s ) Outpatient Attender: BRENT ZAPIEN MDConsultant: Ki Chin if RPA-C 05/14/2021 10:58:00 AM EDT - 05/14/2021 11:58:00 AM EDT [facility]<td ID="encounterTypeDescripti onID0">1 Year Follow-Up</td><td>Onesimo Carreon MD, FACS</td><td>Onesimo Carreon MD [facility]</td><td>06/01/2020</td><td>1:30PM</td><td>05/13/2019 11:59PM</td> <td><content ID="encounterDiagnosisID0-0">Diabetes Mellitus Type 2 - Uncomplicated, Controlled</content>, <content ID="encounterDiagnosisID0- 1">Blepharitis Squamous</content></td> Attender: Onesimo Ibarra MD, FACS Onesimo Carreon MD [facility] 06/01/2020 01:30:00 PM EDT - 05/13/2019 11:59:00 PM ED T Blepharitis SquamousDiabetes Mellitus Type 2 - Uncomplicated, Controlled [place] (Onesimo Ibarra MD [facility]) Blepharitis Squamous Diabetes Mellitus Type 2 - Uncomplicated , Controlled Immunizations Vaccine Date Status Description Data Source(s) COVID-19 VACCINE Pfizer 11/16/2020 12:00:00 AM EST completed NYSIIS Vaccine Series Complete: NOThis Data was Submitted to [facility] Via [employer]. Medications Medication Brand Name Start Date Product [...] type / Coverage type Policy ID Covered libertarian ID Covered libertarian's relationship to llanos Policy Llanos Plan Information U [id number] Self [id number] ACTIVE DUTY [id number] SP [id number] [place] [id number] SP [id number] ACTIVE DUTY [id number] SP [id number] [facility] HUMANA [id number] SP [id number] Jordana [id number] [place] F [id number] SELF [id number] [place] Claims F [id number] SELF [id number] [facility] F [id number] SELF [id number] [place] Region F pending SELF pending [facility] HUMANA [id number] SP [id number] N REGIONAL CLAIMS MICHAEL-O/P [id number] 18 [id number] xxxxxxxxxxx [id number] Jordana [id number] [facility] [employer] [facility] [place] [id number] 18 [id number] [place] [employer] [place] [id number] 18 [id number] [facility] [employer] [facility] [place] [id number] 18 [id number] [facility]/ AD O [id number] S [id number] Problems, Conditions, and Diagnoses Code Display Name Description Problem Type Effective Dates Data Source(s) R519 Headache, unspecified Headache, unspecified Diagnosis 05/14/2021 10:58:00 AM EDT [facility] [id number] 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) 379.21 Vitreous Disorders Degeneration Vitreous Disorders Deg eneration Problem 06/01/2020 02:15:00 PM EDT [facility] (Onesimo Ibarra MD [facility]) Surgeries/Procedures Procedure Description Date Indications Data Source(s) Surgical / procedural history Knee sx 2 015, Neck sx 2009, Spinal stem stimulator x2 2016 2018 Surgical / procedural history Knee sx 2 015, Neck sx 2009, Spinal stem stimulator x2 2017 201806/01/2020 12:00:00 AM EDT [facility] (Onesimo Ibarra MD [facility]) Intermediate Eye Exam Established Patient Intermediate Eye Exam Established Patient 06/01/2020 12:00:00 AM EDT [facility] (Carter Ibarra MD [facility]) Results ID Date Data Source [id number] 05/16/2021 08:27:00 PM EDT [facility] [address] [place] [address] PHONE: [phone] FAX: [phone] Name .................. : MAME LIVIA Marietta Acct Number.................. : [id number] ROOM. ................. : Number ................... : [id number] Stay type ............. : O/P Discharge Date......... ... : 05/14/21 Admit Date .... ..... : 05/14/21 Admit Phys .................... : CURRY LIEBERMAN Date of ....... : 1970 Family Phys ................... : BINH STILES Phone .................. : [phone] Age ................................ : 50 Film# .................. .:[id number] Sex ................................. : M Unsigned transcriptions are preliminary reports and do not represent a medical or legal document CT HEAD W/O CONTRAST [id number] COMPLETE:05/14/21 11:03 Reason for Exam: FREQUENT HEADACHES [...] 14:06, Dictation Date: Page 1 of [address] [place] [address] PHONE: [phone] FAX: [phone] Name .................. : MAME Mcmanus Acct Number.................. : [id number] ROOM. ................. : Number ................... : [id number] Stay type ............. : O/P Discharge Date......... ... : 05/14/21 Admit Date ......... : 05/14/21 Admit Phys .................... : CURRY LIEBERMAN Date of ....... : 1970 Family Phys ................... : BINH LINSEY Phone .................. : [phone] Age ................................ : 50 Film# .................. .:[id number] Sex ................................. : M Unsigned transcriptions are preliminary reports and do not represent a medical or legal document CT HEAD W/O CONTRAST [id number] COMPLETE:05/14/21 11:03 Reason for Exam: FREQUENT HEADACHES [...] tobacco daily (finding) [facility] (Onesimo Ibarra MD [facility])
--- NOTE | 2021-07-28 14:08 | REP ---
INDICATION: trauma, pain left groin. r/o hernia COMPARISON: None. TECHNIQUE: Limited directed B-mode ultrasound using linear high-frequency transducer. FINDINGS: Ultrasound examination of the left groin along with evaluation of the right groin for comparison demonstrates no obvious sonographic abnormality. No fluid collection or mass lesion. IMPRESSION: No obvious abnormality by sonographic evaluation. <Electronically signed by Killian Pendleton > 07/28/21 4202
[2021-07-28] MEDS ORDERED: KETO10TAB PO (14:25)
[2021-07-28 14:40] VITALS: BP 121/64
== END 2021-07-28 14:41 | disposition home or self-care (01) ==
LOC: M ED 11:34
DX: M54.32 Sciatica, left side (principal); S39.013A Strain of muscle, fascia and tendon of pelvis, initial encounter; W18.49XA Other slipping, tripping and stumbling without falling, initial encounter; Y92.099 Unspecified place in other non-institutional residence as the place of occurrence of the external cause; Y93.89 Activity, other specified; Y99.9 Unspecified external cause status; Z79.899 Other long term (current) drug therapy

== ENCOUNTER 2023-06-10 18:10 | Emergency (ER) | payer OTHER ==
[~2023-06-10] VITALS: Ht 175.3 cm; Wt 81.0 kg
[~2023-06-10 18:10] MED LIST changes: +ALPR1TAB3; +AMIT25TA19; +AMPH1TAB2; +KETO10TAB PO; +LOSA50TA28 PO; -LOSA50TA88 PO; +PRAZ1CAP
[2023-06-10] MEDS ORDERED: OXYC1TAB23 (19:31)
[2023-06-11] MEDS ORDERED: GABAPENTIN 300 MG CAP PO ONE (01:05)
[2023-06-11] MEDS ORDERED: NEUR300C PO (01:06)
[2023-06-11 01:49] VITALS: BP 182/110; TEMP 97.3; O2SAT 100
== END 2023-06-11 01:52 | disposition home or self-care (01) ==
LOC: M ED 18:10
DX: R20.2 Paresthesia of skin (principal); F17.200 Nicotine dependence, unspecified, uncomplicated; F41.9 Anxiety disorder, unspecified; W10.8XXA Fall (on) (from) other stairs and steps, initial encounter; Z79.891 Long term (current) use of opiate analgesic; Z79.811 Long term (current) use of aromatase inhibitors; Z79.899 Other long term (current) drug therapy; Y92.009 Unspecified place in unspecified non-institutional (private) residence as the place of occurrence of the external cause; Y93.89 Activity, other specified; Y99.9 Unspecified external cause status

== ENCOUNTER → 2023-07-07 | Outpatient (CLI) | payer OTHER ==
[~2023-07-07] MED LIST changes: +ISOVUE-M 300 61% 15ML VIAL As Ordered ONE; +NEUR300C PO; +OXYC1TAB23
[2023-07-07 07:50] VITALS: TEMP 98.3
[2023-07-07 08:20] LABS: HEMATOCRIT 44.2 % (42.0-52.0); MEAN CORPUSCULAR HEMOGLOBIN 29.5 pg (27.0-33.0); MEAN CORPUSCULAR HGB CONC 33.9 g/dl (32.0-36.5); MEAN CORPUSCULAR VOLUME 86.8 fl (80.0-96.0); PLATELET COUNT, AUTOMATED 292 10^3/uL (150-450); RED BLOOD COUNT 5.09 10^6/uL (4.30-6.10); WHITE BLOOD COUNT 7.8 10^3/uL (4.0-10.0)
[2023-07-07 08:36] LABS: INR 1.06; PROTHROMBIN TIME 13.5 SECONDS (12.5-14.5)
[2023-07-07 08:37] LABS: PARTIAL THROMBOPLASTIN TIME 34.2 SECONDS (24.8-34.2)
[2023-07-07 11:00] VITALS: BP 143/89; O2SAT 100
== END ==
LOC: M RADPRO 07:38
PROVIDERS: ATTEND Family Medicine
DX: R20.0 Anesthesia of skin (principal)
CPT/HCPCS: 36415; 62284; 70450; 72125; 85027; 85610; 85730; Q9967

== ENCOUNTER 2024-01-12 16:25 | Emergency (ER) | payer OTHER ==
[~2024-01-12] VITALS: Ht 175.3 cm; Wt 81.9 kg
[~2024-01-12 16:25] MED LIST changes: -EFFE150C2 PO; +EFFE150C3 PO; -ISOVUE-M 300 61% 15ML VIAL As Ordered ONE
[2024-01-12] MEDS: LIDOCAINE 1% MDV 20ML VIAL SC ONE (20:44)
[2024-01-12] MEDS: CEPHALEXIN 500 MG CAP PO ONE (20:44)
[2024-01-12] MEDS ORDERED: CEPH500C PO (21:37)
[2024-01-12 21:51] VITALS: BP 179/105; TEMP 98.7; O2SAT 100
== END 2024-01-12 21:53 | disposition home or self-care (01) ==
LOC: M ED 16:25
DX: S61.412A Laceration without foreign body of left hand, initial encounter (principal); W27.5XXA Contact with paper-cutter, initial encounter; Y92.9 Unspecified place or not applicable; Y93.9 Activity, unspecified; Y99.0 Civilian activity done for income or pay; E11.9 Type 2 diabetes mellitus without complications; I10 Essential (primary) hypertension; F17.200 Nicotine dependence, unspecified, uncomplicated; Z79.899 Other long term (current) drug therapy

== ENCOUNTER → 2025-06-21 | Outpatient (CLI) | payer OTHER ==
[~2025-06-21] MED LIST changes: +CEPH500C PO; -COLC0.6T47 PO; +COLC0.6T53 PO; +PREG-35; -PREG100CA
== END ==
LOC: M RAD 09:09
PROVIDERS: ATTEND Internal Medicine
DX: Z12.2 Encounter for screening for malignant neoplasm of respiratory organs (principal); F17.210 Nicotine dependence, cigarettes, uncomplicated; R91.8 Other nonspecific abnormal finding of lung field